=== PATIENT | male | born 1975 | race Caucasian/White ===

== ENCOUNTER → 2017-08-18 | Outpatient (CLI) | payer MEDICARE ==
[2017-08-18 10:52] LABS: Basophils # (A) 0.1 k/uL (0-0.2); Basophils % (A) 1 %; CH 31.5; CHCM 34.2; Eosinophils # (A) 0.2 k/uL (0-0.7); Eosinophils % (A) 2 %; HCT 50.1 % (39.0-53.0); HGB 16.5 gm/dL (13.0-17.5); Luc # (Auto) 0.21; Luc % (Auto) 2; Lymphocytes # (A) 2.3 k/uL (1.0-4.8); Lymphocytes % (A) 23 %; MCH 30.5 pg (25.0-35.0); MCV 92.5 fL (80.0-100.0); Mean Platelet Volume 6.8; Monocytes # (A) 0.6 k/uL (0-1.0); Monocytes % (A) 6 %; Neutrophils # (A) 6.7 k/uL (1.3-7.7); Neutrophils % (A) 66 %; RBC 5.42 m/uL (4.30-5.90); RDW 12.2 % (11.5-15.5); WBC 10.2 k/uL (3.8-10.6); WBC (Perox) 9.89
[2017-08-18 11:07] LABS: Potassium 4.6 mmol/L (3.5-5.1)
== END | disposition home or self-care (01) ==
LOC: LABPAT 10:03
PROVIDERS: ATTEND Orthopaedic Surgery
DX: Z01.818 Encounter for other preprocedural examination (principal); M75.41 Impingement syndrome of right shoulder; Z01.812 Encounter for preprocedural laboratory examination
CPT/HCPCS: 36415; 80051; 85025; 93005

== ENCOUNTER → 2017-08-25 | Day surgery (SDC) | payer MEDICARE, OTHER ==
[2017-08-23 09:33] VITALS: BMI 33.2
--- NOTE | 2017-08-24 18:57 | HP ---
HISTORY AND PHYSICAL CHIEF COMPLAINT: Right shoulder pain. HISTORY OF PRESENT ILLNESS: The patient is a 42-year-old right-hand dominant male, on disability, who presents with progressive right shoulder pain, worsening over the past year. He has had increasing symptoms recently. He is having pain with overhead activity and at night. He has tried previous medications, rest, and exercises with persistence/worsening of his symptoms. PAST MEDICAL HISTORY: Negative. PAST SURGICAL HISTORY: Significant for bilateral knee surgery, left shoulder surgery, neck surgery, and lower back surgery. CURRENT ALLERGIES: None. ALLERGIES: He notes allergies to CODEINE. FAMILY HISTORY: Negative. SOCIAL HISTORY: Negative for current tobacco or alcohol use. REVIEW OF SYSTEMS: Sixteen point review of systems otherwise reviewed and is noncontributory. PHYSICAL EXAMINATION: On examination, the patient is approximately 6 foot tall, 245 pounds of endomorphic habitus. HEENT exam is nonfocal. Neck is supple. On examination of the right shoulder, he is tender about the anterior subacromial space. He has mild subacromial crepitus. Active range of motion forward elevation 165 degrees, external rotation with the arm side 75 degrees, internal rotation to L5. Motor strength is 5-/5 for external rotation with the arm at side, 5/5 for abduction. Impingement, Neer and Speed tests are positive. His distal neurovascular appears intact in the right upper extremity. MRI report from 08/08/2017 of the right shoulder shows increased signal along the infraspinatus insertion with a questionable partial thickness bursal surface tear. IMPRESSION: 1. Right shoulder impingement with possible partial-thickness rotator cuff tear. 2. Bicipital tendinitis. RECOMMENDATIONS: I talked to the patient at length regarding his treatment options. At this point, he notes he is quite symptomatic and has tried conservative measures in the past with recurrence of his symptoms. After thorough discussion, he opts to proceed with surgery. We will plan to proceed with arthroscopic evaluation with possible subacromial decompression, possible rotator cuff debridement versus repair. We will also assess the status with biceps tendon at the same time. We will likely perform that as an outpatient procedure. MMODL / IJN: [id number] /
[~2017-08-25] MED LIST: DEXAMETHASONE SOD PHOSPHATE 10 MG/ML 1 ML VIAL IV ONE; HYDROmorphone (PF) 1 MG/ML ONE; HYDROmorphone 0.5 MG/0.5 ML SYRINGE IVP PRN; LACTATED RINGERS 1,000 ML IV ONE; LACTATED RINGERS 1,000 ML IV SCH; LIDOCAINE 1% 20 ML VIAL (10MG/ML) FOR IV START INTRADERMA PRN; LIDOCAINE 1% INJ 10MG/ML (20 ML MDV) ONE; MIDAZOLAM 2 MG/2 ML VIAL IV PRN; MIDAZOLAM 2 MG/2 ML VIAL ONE; MORPHINE SULFATE 10 MG/ML SYRINGE ONE; ONDANSETRON 4 MG/2 ML VIAL IVP ONE; PHENYLEPHRINE-0.9% NACL SYG 1 MG/10 ML SYRINGE ONE; PROPOFOL 10 MG/ML 20 ML VIAL IV ONE; SCOPOLAMINE 1.5MG/72HR PATCH TRANSDERM ONE; SUCCINYLCHOLINE CHLORIDE 100 MG/5 ML SYR IV ONE; ceFAZolin IN SWFI 2 GM/20 ML SYRINGE IVP ONE; fentaNYL (PF) 50 MCG/ML 2 ML AMP ONE
[2017-08-25 11:11] VITALS: BP 173/77; PULSE 86; RESP 16; TEMP 98
--- NOTE | 2017-08-25 22:55 | OP ---
OPERATIVE REPORT DATE OF SERVICE: 08/25/2017. PREOPERATIVE DIAGNOSIS: Right shoulder impingement/bicipital tendinitis/acromioclavicular joint arthritis. POSTOPERATIVE DIAGNOSES: 1. Partial-thickness tear, right rotator cuff. 2. High-grade partial-thickness tear, long head of the biceps, right shoulder. 3. Acromioclavicular synovitis/arthritis. PROCEDURE: 1. Right shoulder arthroscopic subacromial decompression. 2. Right shoulder arthroscopic biceps tenotomy. 3. Right shoulder arthroscopic distal clavicular resection. 4. Right shoulder arthroscopic rotator cuff debridement. SURGEON: Dr. Reyes Aguilar. CARE NAVIGATOR: Boy Bennett. ANESTHESIA: General. PREP: DuraPrep. INDICATIONS FOR PROCEDURE: The patient is a 42-year-old gentleman who presents with progressive right shoulder pain despite conservative measures. He was quite limited because of pain. A discussion of the risks and benefits of operative intervention versus continued conservative measures was made with the patient. He opted to proceed with surgery. Operative risks to include infection, neurovascular injury, development of blood clot, possible incomplete resolution of symptoms, possible worsening of symptoms and need for subsequent procedures were discussed. Informed consent was obtained. PROCEDURE DESCRIPTION: The patient was brought to the operating room, and after induction of general anesthesia, he was placed into a beach chair position. The bony prominences were appropriately padded. I examined the right shoulder. There was no gross block to passive motion. There was no gross glenohumeral instability. The right upper extremity was prepped and draped in a normal fashion. The bony outline of the acromion, distal clavicle and coracoid process was outlined with a skin marker. The glenohumeral joint was inflated with 50 mL of saline utilizing a spinal needle from a posterior approach. A posterior portal was made through a 5 mm skin incision 1 cm medial and inferior to the posterolateral border of the acromion. A blunt trocar was used to easily enter the joint. Diagnostic arthroscopy was performed. An anterior portal was made, entering the joint above the subscapularis tendon lateral to the coracoid process. On inspection of the joint, the anterior labrum was intact. Minimal degenerative changes involving the humeral head and glenoid were noted. On inspection of the intra-articular portion of the biceps, there was a high-grade partial-thickness tear. It was elected to proceed with tenotomy at this point. This was released from the superior labrum with electrocautery and allowed to retract to the bicipital groove. On inspection of the rotator cuff, a partial-thickness tear involving the supraspinatus and infraspinatus tendons was noted. This was debrided back to a stable base with a motorized shaver. Less than 3 mm of the tendon thickness was involved. The posterior portion of the rotator cuff was intact. The subscapularis was intact. The posterior labrum was intact. The inferior recess was inspected. The arthroscope was then placed into the subacromial space. A lateral portal was made through a 5 mm skin incision, 2.5 cm inferior to the anterolateral border of the acromion. The soft tissue on the undersurface of the acromion was debrided with a motorized shaver and with electrocautery to clearly define the anterior medial and lateral borders as well as the distal clavicle. An anterior inferior acromioplasty was performed with a motorized bur starting anterior lateral, then extending this posteriorly, then extending this medially. I was able to convert to a flat acromion. This was verified from the posterior and lateral viewing portals. The coracoacromial ligament was detached from the anterior acromion with electrocautery. Significant synovitis/arthritis of the AC joint was noted with impingement on the cuff as well. It was elected to proceed with distal clavicular resection. A motorized bur was used to remove the distal 4 to 5 mm of the clavicle. The rotator cuff was inspected on the bursal surface. There was significant bursal thickening that was debrided with a motorized shaver. The rotator cuff appeared intact on the bursal surface. The arthroscope was then removed. The portals were closed with simple 3-0 nylon suture. A sterile dressing was applied in addition to a sling. The patient was awoken from general anesthesia and transferred to the recovery room in good condition. Blood loss is estimated at 10 mL. No complications were incurred. Sponge and needle counts were correct at the end of the case. There was no specimen. MMODL / IJN: [id number] /
--- NOTE | 2017-08-26 08:01 | P.ONQ ---
Anesthesiology Proc Note - PNB - Peripheral Nerve Block Performed Right Interscalene Indication: Acute Post-Operative Pain, Requested by physician (Dr Aguilar) Sedation Type: Sedate with meaningful contact maintained Preparation: Sterile Prep Position: Supine Catheter: None Needle Types: Other (see comment) (Raymon) Needle Size: 50mm (2") Needle Gauge: 20 Technique: Ultrasound Injectate: 0.5% Ropivacaine (see comment for volume) (15cc, Lidocaine 1% 15cc, 1 :100,000 epi) Blood Aspirated: No Pain Paresthesia on Injection Noted: No Resistance on Injection: Normal Events: Uneventful and Well Tolerated
== END ==
LOC: OR 08:39
PROVIDERS: ATTEND Orthopaedic Surgery
DX: M75.111 Incomplete rotator cuff tear or rupture of right shoulder, not specified as traumatic (principal); S46.111A Strain of muscle, fascia and tendon of long head of biceps, right arm, initial encounter; X58.XXXA Exposure to other specified factors, initial encounter; M65.811 Other synovitis and tenosynovitis, right shoulder; M19.211 Secondary osteoarthritis, right shoulder; F17.200 Nicotine dependence, unspecified, uncomplicated; Z88.5 Allergy status to narcotic agent
CPT/HCPCS: 29823; 29824; 64415; J2250; J1100; J2270; J0690; J2405; J2001; J3010; J1170; J2370; J0330; J2704

== ENCOUNTER → 2018-08-20 | Outpatient (CLI) | payer MEDICARE, OTHER ==
--- NOTE | 2018-08-20 12:11 | XR ---
EXAMINATION TYPE: XR orbit detect foreign body DATE OF EXAM: 08/20/2018 COMPARISON: NONE HISTORY: Pre-MRI clearance. Works with metal. TECHNIQUE: 3 views of the orbits including Perez and Analisa frontal view and lateral projection. FINDINGS: No metallic intraorbital foreign body is seen to prevent MRI study. Overlying soft tissue i s unremarkable. IMPRESSION: As above.
--- NOTE | 2018-08-20 14:09 | MR ---
EXAMINATION TYPE: MR knee RT wo con DATE OF EXAM: 08/20/2018 COMPARISON: Outside right knee x-ray from one week ago. HISTORY: Pain in right knee per order. Inner knee pain and swelling for years per patient. TECHNIQUE: Multiplanar, multisequence images of the knee is performed without IV contrast. FINDINGS: MEDIAL MENISCUS: Anterior horn is intact without tear. There is horizontal oblique increased signal p osterior horn of medial meniscus which is truncated extending to inferior and likely superior articul ar surfaces. Slight medial protrusion of medial meniscus as seen on coronal images. Extension towards the central body is noted on sagittal images. LATERAL MENISCUS: Anterior and posterior horns are intact without tear. CRUCIATE LIGAMENTS: The anterior and posterior cruciate ligaments are intact and unremarkable. COLLATERAL LIGAMENTS: The medial collateral ligament and lateral collateral ligament complex are inta ct and unremarkable. EXTENSOR MECHANISM: Visualized quadriceps and patellar tendons are intact. EFFUSION: No significant suprapatellar joint effusion. POPLITEAL CYST: No popliteal/noriega cyst. TRICOMPARTMENT SPACES: Mild to moderate narrowing medial tibiofemoral compartment is present. No sign ificant spurring is seen. CARTILAGE: Cartilaginous loss medial tibiofemoral compartment is noted. BONE MARROW SIGNAL: No focal abnormal marrow signal is appreciated. OTHER: No additional significant abnormality is appreciated. IMPRESSION: Asymmetric mild to moderate medial tibiofemoral compartment osteoarthritis somewhat prono unced for patient's age with full-thickness tear posterior horn of medial meniscus appreciated.
== END | disposition home or self-care (01) ==
LOC: RADMRIMAIN 11:45
PROVIDERS: ATTEND Orthopaedic Surgery
DX: M17.11 Unilateral primary osteoarthritis, right knee (principal); S83.241A Other tear of medial meniscus, current injury, right knee, initial encounter; Z01.818 Encounter for other preprocedural examination
CPT/HCPCS: 70030

== ENCOUNTER → 2018-09-10 | Outpatient (CLI) | payer MEDICARE ==
[2018-09-10 09:36] LABS: Basophils # (A) 0.1 k/uL (0-0.2); Basophils % (A) 1 %; Eosinophils # (A) 0.2 k/uL (0-0.7); Eosinophils % (A) 3 %; HCT 51.1 % (39.0-53.0); HGB 16.3 gm/dL (13.0-17.5); Lymphocytes % (A) 24 %; MCV 93.8 fL (80.0-100.0); Mean Platelet Volume 6.3; Monocytes # (A) 0.6 k/uL (0-1.0); Monocytes % (A) 7 %; Neutrophils # (A) 5.2 k/uL (1.3-7.7); Neutrophils % (A) 63 %; Platelet Count 283 k/uL (150-450); RBC 5.44 m/uL (4.30-5.90); WBC 8.3 k/uL (3.8-10.6)
[2018-09-10 10:05] LABS: Potassium 4.6 mmol/L (3.5-5.1)
== END | disposition home or self-care (01) ==
LOC: LABPAT 08:45
PROVIDERS: ATTEND Orthopaedic Surgery
DX: Z01.812 Encounter for preprocedural laboratory examination (principal); M23.91 Unspecified internal derangement of right knee
CPT/HCPCS: 36415; 80051; 85025

== ENCOUNTER 2018-09-14 09:55 | Day surgery (SDC) | payer MEDICARE, OTHER ==
[2018-09-12 11:08] VITALS: BMI 34.8
--- NOTE | 2018-09-13 13:01 | HP ---
HISTORY AND PHYSICAL CHIEF COMPLAINT: Right knee pain. HISTORY OF PRESENT ILLNESS: The patient is a 43-year-old male on disability who presents with progressive right knee pain for the past several months. He is having a difficult time going up stairs and ladders. He notes medial pain and giving way. He had a previous arthroscopy in 2008. He has tried an injection and medications with only partial temporary relief. PAST MEDICAL HISTORY: Significant for arthritis. PAST SURGICAL HISTORY: Significant for bilateral knee arthroscopy, left shoulder surgery, previous cervical and lumbar surgeries. CURRENT ALLERGIES: Valium. He has allergies to CODEINE. FAMILY HISTORY: Negative. SOCIAL HISTORY: Significant for current tobacco use. REVIEW OF SYSTEMS: A 16 point review of systems otherwise reviewed and is noncontributory. PHYSICAL EXAMINATION: On examination, the patient is approximately 6 feet tall, 250 pounds of endomorphic habitus. HEENT exam is nonfocal. Neck is supple. He has painless passive motion of the right hip. Straight leg raise is negative, active motion right knee -6 to 124 degrees of flexion. He is tender about the medial joint line. Collaterals are stable, Sukumar is negative, Jenn's elicits medial pain. His distal neurovascular exam appears intact in the right lower extremity. MRI report from 08/20/2018 shows a posterior medial meniscal tear along with medial compartment degenerative changes. IMPRESSION: 1. Internal derangement, right knee with symptomatic medial meniscal tear #1. 2. Right knee moderate medial compartment osteoarthrosis. 3. Obesity. RECOMMENDATIONS: I talked to the patient at length regarding his condition and treatment options. At this point, he remains quite symptomatic despite conservative measures. He opts to proceed with surgery. We will plan to proceed with arthroscopic evaluation with possible partial medial meniscectomy. Risks and benefits were discussed at length in layman's terms. MMODL / IJN: [id number] /
[~2018-09-14 09:55] MED LIST changes: -HYDROmorphone (PF) 1 MG/ML ONE; -HYDROmorphone 0.5 MG/0.5 ML SYRINGE IVP PRN; -LACTATED RINGERS 1,000 ML IV ONE; -LIDOCAINE 1% 20 ML VIAL (10MG/ML) FOR IV START INTRADERMA PRN; -LIDOCAINE 1% INJ 10MG/ML (20 ML MDV) ONE; +MIDAZOLAM (PF) 2 MG/2 ML VIAL IV PRN; -MIDAZOLAM 2 MG/2 ML VIAL IV PRN; -MIDAZOLAM 2 MG/2 ML VIAL ONE; -MORPHINE SULFATE 10 MG/ML SYRINGE ONE; -ONDANSETRON 4 MG/2 ML VIAL IVP ONE; -PHENYLEPHRINE-0.9% NACL SYG 1 MG/10 ML SYRINGE ONE; -PROPOFOL 10 MG/ML 20 ML VIAL IV ONE; -SCOPOLAMINE 1.5MG/72HR PATCH TRANSDERM ONE; -SUCCINYLCHOLINE CHLORIDE 100 MG/5 ML SYR IV ONE; +fentaNYL (PF) 50 MCG/ML 2 ML AMP IV PRN; -fentaNYL (PF) 50 MCG/ML 2 ML AMP ONE
[2018-09-14] MEDS ORDERED: LIDOCAINE 1% 20 ML VIAL (10MG/ML) FOR IV START INTRADERMA ONE (10:25)
[2018-09-14] MEDS ORDERED: ONDANSETRON 4 MG/2 ML VIAL IVP ONE (10:30)
[2018-09-14] MEDS ORDERED: DEXAMETHASONE SOD PHOSPHATE 10 MG/ML 1 ML VIAL IV ONE (10:30)
[2018-09-14] MEDS ORDERED: fentaNYL (PF) 50 MCG/ML 2 ML AMP ONE (11:29)
[2018-09-14] MEDS ORDERED: SUCCINYLCHOLINE CHLORIDE VIAL 200 MG/10 ML VIAL IV ONE (11:29)
[2018-09-14] MEDS ORDERED: PROPOFOL 10 MG/ML 20 ML VIAL IV ONE (11:29)
[2018-09-14] MEDS ORDERED: MIDAZOLAM 2 MG/2 ML VIAL ONE (11:29)
[2018-09-14] MEDS ORDERED: LIDOCAINE 1% INJ 10MG/ML (20 ML MDV) ONE (11:29)
[2018-09-14] MEDS ORDERED: PHENYLEPHRINE-0.9% NACL SYG 1 MG/10 ML SYRINGE ONE (11:29)
[2018-09-14] MEDS ORDERED: ceFAZolin 1,000 MG/50 ML BAG (PMX) IVPB ONE (11:45)
[2018-09-14] MEDS ORDERED: LACTATED RINGERS 1,000 ML IV ONE (12:07)
--- NOTE | 2018-09-14 12:16 | P.OP ---
Date of Procedure: 09/14/18 Preoperative Diagnosis: Right knee internal derangement Postoperative Diagnosis: Right knee posterior medial meniscal tear/grade 23 chondral injury distal medial femoral condyle Procedure(s) Performed: Right knee arthroscopic partial medial meniscectomy/medial femoral chondrectomy Anesthesia: DARYL Surgeon: Reyes Aguilar Estimated Blood Loss (ml): 10 Pathology: none sent Condition: stable Disposition: PACU Indications for Procedure: The patient is a 43-year-old male who presents with progressive right knee pain and mechanical symptoms despite conservative measures. A discussion of the risks and benefits of operative intervention versus continued conservative measures was made with the patient. He opted to proceed with surgery. Operative risks to include infection, neurovascular injury, development of blood clots, possible incomplete resolution of symptoms, possible worsening of symptoms and need for subsequent procedures was discussed. Informed consent was obtained. Operative Findings: As below Description of Procedure: The patient was brought to the operating room, and after induction of general anesthesia examined the [] knee. Collaterals were stable, Sukumar was negative , and posterior drawer was negative. The right lower extremity was prepped and draped in a normal fashion. A superior lateral portal was made through a 3 mm skin incision superior and lateral to the patella. This was used for outflow. A lateral portal was made through a 5 mm vertical skin incision lateral to the patella tendon above the joint line. Diagnostic arthroscopy was performed. On inspection of the medial compartment a complex tear involving the posterior horn of the medial meniscus was noted in the white-red junction. This was debrided back to stable base with straight baskets and a motorized shaver. A corresponding grade 23 chondral injury was noted involving the distal medial femoral condyle was a loose chondral fragment. This was debrided back to stable base with a motorized shaver. Diffuse grade chondral changes were noted in the medial compartment. On inspection of the notch, the anterior cruciate ligament appeared to be intact. On inspection of the lateral compartment no significant cartilage or meniscal pathology was noted.. On inspection of the patellofemoral articulation there was mild degenerative changes however no loose chondral fragments.. The gutters were clear debris. The knee was then thoroughly irrigated. The portals were closed with Steri-Strips. A sterile dressing was applied in addition to a compression stocking. The patient was awoken from general anesthesia and transferred to recovery room in good condition. Blood loss was estimated at 10 mL. No complications were incurred.
[2018-09-14 12:35] VITALS: TEMP 96.8
[2018-09-14] MEDS ORDERED: MORPHINE SULFATE 10 MG/ML SYRINGE IVP ONE ×5 (13:11→13:42)
[2018-09-14] MEDS ORDERED: HYDROcodone/APAP 5-325MG 1 EACH TAB PO ONE (14:00)
[2018-09-14 14:41] VITALS: BP 100/64; PULSE 76; RESP 16
== END 2018-09-14 14:55 | disposition home or self-care (01) ==
LOC: OR 09:55
PROVIDERS: ATTEND Orthopaedic Surgery
DX: S83.231A Complex tear of medial meniscus, current injury, right knee, initial encounter (principal); X58.XXXA Exposure to other specified factors, initial encounter; M17.11 Unilateral primary osteoarthritis, right knee; E66.9 Obesity, unspecified; Z68.34 Body mass index [BMI] 34.0-34.9, adult; M54.16 Radiculopathy, lumbar region; F17.200 Nicotine dependence, unspecified, uncomplicated; Z92.84 Personal history of unintended awareness under general anesthesia; Z88.5 Allergy status to narcotic agent
CPT/HCPCS: 29881; J2250; J0330; J1100; J2270; J2405; J2001; J3010; J0690; J2370; J2704

== ENCOUNTER → 2019-04-24 | Outpatient (CLI) | payer MEDICARE ==
--- NOTE | 2019-04-24 11:19 | US ---
EXAMINATION TYPE: US abdomen complete DATE OF EXAM: 04/24/2019 COMPARISON: US CLINICAL HISTORY: K46.9 Unspecified abdominal hernia without obstruc. Pt states ABD pain, GB removed EXAM MEASUREMENTS: Liver Length: 18.0 cm CBD: 0.4 cm Spleen: 10.6 cm Right Kidney: 11.6 x 4.8 x 5.2 cm Left Kidney: 10.9 x 6.5 x 5.8 cm Pancreas: wnl, tail obscured by overlying bowel gas Liver: Enlarged, heterogeneous Gallbladder: Surgically absent Evidence for sonographic Dos Santos's sign: No CBD: wnl Spleen: wnl Right Kidney: wnl Left Kidney: Cyst mid/lateral= 1.4 x 1.4 x 1.5 cm Upper IVC: wnl Abd Aorta: wnl Please note midline/right superficial ABD scanned in area pt stated Dr felt palpable, No abnormalit y visualized in this area IMPRESSION: 1. Visualized abdomen ultrasound is unremarkable. 2. Left renal cyst 3. In the superficial abdomen at the area of the palpable region, no suspicious ultrasound findings a re evident.
== END | disposition home or self-care (01) ==
LOC: RADUSWWP 07:38
PROVIDERS: ATTEND Internal Medicine Geriatric Medicine
DX: N28.1 Cyst of kidney, acquired (principal)
CPT/HCPCS: 76700

== ENCOUNTER → 2020-06-10 | Outpatient (CLI) | payer MEDICARE ==
[2020-06-10 11:49] LABS: HCT 50.5 % (39.0-53.0); HGB 16.9 gm/dL (13.0-17.5); MCH 31.4 pg (25.0-35.0); MCHC 33.5 g/dL (31.0-37.0); MCV 93.8 fL (80.0-100.0); Mean Platelet Volume 6.8; Platelet Count 232 k/uL (150-450); RBC 5.39 m/uL (4.30-5.90); RDW 12.4 % (11.5-15.5); WBC 9.8 k/uL (3.8-10.6)
[2020-06-10 22:43] LABS: African American GFR (CKD) 75.8 (60.0-200.0); Anion Gap 9.9 mmol/L (4.00-12.00); Carbon Dioxide 23.1 mmol/L (21.6-31.8); Non-African American GFR(CKD) 65.4 (60.0-200.0); Potassium 4.5 mmol/L (3.5-5.5)
== END | disposition home or self-care (01) ==
LOC: LABWHC1 09:33
PROVIDERS: ATTEND Internal Medicine Interventional Cardiology
DX: Z01.818 Encounter for other preprocedural examination (principal); R07.9 Chest pain, unspecified
CPT/HCPCS: 36415; 80051; 82565; 84520; 85027

== ENCOUNTER 2020-06-12 07:29 | Day surgery (SDC) | payer MEDICARE ==
[2020-06-10 12:49] VITALS: BMI 36.6
[~2020-06-12 07:29] MED LIST changes: +ALPRAZolam 0.25 MG TAB PO PRN; +ASPIRIN 325 MG TAB PO STA; +ATORVASTATIN 80 MG TAB PO STA; -DEXAMETHASONE SOD PHOSPHATE 10 MG/ML 1 ML VIAL IV ONE; -LACTATED RINGERS 1,000 ML IV SCH; -MIDAZOLAM (PF) 2 MG/2 ML VIAL IV PRN; +NITROGLYCERIN SL TABS 0.4 MG TAB SUBLINGUAL PRN; +SODIUM CHLORIDE 0.9% 1,000 ML in EMPTY BAG 1 BAG IV ONE; -ceFAZolin IN SWFI 2 GM/20 ML SYRINGE IVP ONE; -fentaNYL (PF) 50 MCG/ML 2 ML AMP IV PRN
[2020-06-12] MEDS ORDERED: SODIUM CHLORIDE 0.9% 1,000 ML IV ONE (07:45)
[2020-06-12] MEDS: ALPRAZolam 0.5 MG TAB PO PRN ×2 (07:50→07:55)
[2020-06-12] MEDS ORDERED: VERAPAMIL 2.5 MG/ML 2 ML AMP ONE (08:19)
[2020-06-12] MEDS ORDERED: HEPARIN SODIUM 1,000 UN/ML (10ML VL) ONE (08:19)
[2020-06-12] MEDS ORDERED: LIDOCAINE 1% INJ 10MG/ML (20 ML MDV) ONE (08:19)
[2020-06-12] MEDS ORDERED: MIDAZOLAM 2 MG/2 ML VIAL IVP ONE (08:36)
[2020-06-12] MEDS ORDERED: LIDOCAINE 1% INJ 10MG/ML (20 ML MDV) SQ ONE (08:39)
[2020-06-12] MEDS: VERAPAMIL SYRINGE (5 MG/10 ML) INTRAARTER ONE ×2 (08:41→08:54)
[2020-06-12] MEDS ORDERED: HYDROmorphone 1 MG/ML 1 ML SYRINGE ONE (08:42)
[2020-06-12] MEDS ORDERED: HYDROmorphone 1 MG/ML 1 ML SYRINGE IVP ONE (08:44)
[2020-06-12] MEDS ORDERED: HEPARIN SODIUM 1,000 UN/ML (10ML VL) IV ONE (08:45)
[2020-06-12] MEDS ORDERED: IOPAMIDOL-370 125ML BTL INJ ONE (08:55)
[2020-06-12] MEDS ORDERED: RX INFO: IV CONTRAST WAS GIVEN 1 EACH MISC MISCELLANE PRN (09:01)
[2020-06-12] MEDS ORDERED: SODIUM CHLORIDE 0.9% 1,000 ML IV SCH (09:15)
[2020-06-12] MEDS ORDERED: methylPREDNISolone SOD SUCCI 125 MG/2 ML VIAL IV STA (09:16)
[2020-06-12] MEDS ORDERED: diphenhydrAMINE 50 MG CAP PO STA (09:16)
[2020-06-12] MEDS: methylPREDNISolone SOD SUCCI 125 MG/2 ML VIAL ONE ×2 (09:18→09:37)
--- NOTE | 2020-06-12 09:36 | CC ---
CARDIAC CATHETERIZATION REPORT DATE OF SERVICE: 06/12/2020 PERFORMING PHYSICIAN: Miguel Musa MD. PROCEDURE PERFORMED: 1. Selective right and left coronary angiogram. 2. Left heart catheterization. INDICATION: This is a 45-year-old gentleman with history of smoking as well as hypertension and obesity, who was experiencing symptoms of atypical chest discomfort as well as shortness of breath with exertion. He underwent myocardial perfusion imaging stress test and that revealed distal anterior wall ischemia. Because of that, a heart catheterization was advised. APPROACH: Right radial artery. COMPLICATION: None. LEVEL OF SEDATION: Moderate with sedation length of 21 minutes. PROCEDURE DESCRIPTION: After obtaining an informed consent, the patient was brought to the cardiac school laboratory technician. The right radial artery was cannulated using micropuncture technique, the micropuncture wire passed easily, then I placed a 6-Korean sheath. I did give the patient 2 mg of verapamil IA and 10,000 units of heparin IV. Selective right and left coronary angiogram performed with JR4 and JL3.5 catheters. Left heart catheterization was performed using the JR4 catheter which crossed the aortic valve, then I did pullback across the valve. The procedure was completed without any complication. SELECTIVE CORONARY ANGIOGRAM: 1. The right coronary artery is a large caliber vessel and it is a dominant vessel. The proximal RCA appeared to be angiographically normal. The mid RCA has eccentric lesion was seen best on the PRESCOTT view as well as the AP cranial view. The lesion appeared to be eccentric and appeared to be in the range of 60%. The RCA distally appeared to be angiographically normal. 2. The left main is angiographically normal, it bifurcates into LCX and LAD. 3. The LCX is a large caliber vessel, it is a codominant vessel. The left circumflex is angiographically normal. Proximally, it gives rise into a large first OM branch which worked as ramus intermedius and appeared to be angiographically normal and in the mid gives rise into a second OM branch which has mild disease only and then distally bifurcates into PDA and PLV branches. 4. The LAD is angiographically normal. It does reach the apex. The LAD gives rise into multiple diagonal branches, they appeared to be angiographically normal. 5. HEMODYNAMICS: The LVEDP was 10 mmHg without significant gradient across the aortic valve. CONCLUSION: 1. 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 2. Mild disease involving the left coronary system. 3. Normal left ventricular end-diastolic pressure. POSTPROCEDURE MANAGEMENT: 1. Consider a conservative medical approach including anti-platelet as well as high- intensity statin, as well as beta yojana. 2. If the patient continues to be symptomatic on maximized medical treatment, I would consider doing a FFR/PCI of the RCA lesion. MMADALBERTO / SARAHN: [id number] /
--- NOTE | 2020-06-12 09:52 | LTR ---
DATE OF SERVICE: 06/12/2020 RE: Nikos Roman Dear Dr. Fuller; Mr. Nikos Roman underwent today a heart catheterization. As you know, he is a pleasant 45-year-old gentleman who was experiencing symptoms of chest discomfort and underwent myocardial perfusion imaging stress test and that revealed anterior ischemia. Because of that, a heart catheterization was advised. The heart catheterization revealed intermediate to severe lesion involving the mid right coronary artery, seems to be in the range of 50% to 60%. At this point, I did advise maximized medical treatment including anti-platelet as well as high-intensity statin as well as beta yojana. If he continues to be symptomatic in spite of that, I would consider doing an FFR/PCI of the RCA lesion. Thank you again for allowing me to participate in his care. Sincerely, MD ROSE Ponce / BRAD: [id number] /
[2020-06-12 15:37] VITALS: RESP 16
[2020-06-12 15:59] VITALS: BP 146/76; PULSE 74
== END 2020-06-12 13:40 | disposition home or self-care (01) ==
LOC: CATHCVL 07:29
PROVIDERS: ATTEND Internal Medicine Interventional Cardiology
DX: I25.110 Atherosclerotic heart disease of native coronary artery with unstable angina pectoris (principal); R07.89 Other chest pain; R06.02 Shortness of breath; R94.39 Abnormal result of other cardiovascular function study; I10 Essential (primary) hypertension; E66.9 Obesity, unspecified; L23.7 Allergic contact dermatitis due to plants, except food; Z88.5 Allergy status to narcotic agent; Z87.891 Personal history of nicotine dependence; Z68.37 Body mass index [BMI] 37.0-37.9, adult
CPT/HCPCS: 93458; C1769; C1894; J2250; J2930; J2001; J1644; J1170; Q9967

== ENCOUNTER 2024-09-18 12:42 | Emergency (ER) | payer BC, MEDICARE ==
[2024-09-18 12:47] VITALS: TEMP 97.9
--- NOTE | 2024-09-18 13:29 | ED ---
Back Pain HPI - General Chief Complaint: Back Pain/Injury Stated Complaint: back pain Time Seen by Provider: 09/18/24 12:57 Source: patient, RN notes reviewed Limitations: no limitations - History of Present Illness Initial Comments: This is a 49-year-old male with history of chronic back pain and disc herniation presenting with back pain (04/13) x 5 days. Patient states pain occurred suddenly while walking, described as sharp with burning sensation traveling down his right leg to his foot. Denies recent trauma, heavy lifting, new cause of pain. Denies saddle paresthesia, urinary incontinence/retention. Endorses use of p.o. muscle relaxer with minimal relief. MD Complaint: back pain Onset/Timin -: days(s) Similar Symptoms Previously: Yes Place: home Radiation: right leg Severity scale (1-10): 8 Quality: burning Consistency: constant Improves With: immobilization Worsens With: movement, sitting upright, walking Associated Symptoms: denies other symptoms - Related Data Previous Rx's Medication Instructions Recorded Cyclobenzaprine [Flexeril] 10 mg PO Q8H PRN #15 tab 09/18/24 Ibuprofen [Motrin] 800 mg PO Q8H PRN #30 tab 09/18/24 Allergies Allergy/AdvReac Type Severity Reaction Status Date / Time codeine Allergy Rash/Hives, Verified 09/18/24 12:48 ITCHING hydromorphone [From Dilaudid] AdvReac Itching Verified 09/18/24 12:48 Review of Systems ROS Statement: Those systems with pertinent positive or pertinent negative responses have been documented in the HPI. ROS Other: All systems not noted in ROS Statement are negative. Past Medical History Past Medical History: Osteoarthritis (OA) Additional Past Medical History / Comment(s): kidney stone hx. History of Any Multi-Drug Resistant Organisms: None Reported Past Surgical History: Back Surgery, Cholecystectomy, Orthopedic Surgery Additional Past Surgical History / Comment(s): lt thumb reattached. lt shoulder. mirian knee surg. x 5, neck titanium, 3 low back surg. x 3. Past Anesthesia/Blood Transfusion Reactions: Previous Problems w/ Anesthesia Additional Past Anesthesia/Blood Transfusion Reaction / Comment(s): wakes up in the middle of surgerys, occ. choke and gag. Past Psychological History: No Psychological Hx Reported Smoking Status: Never smoker Past Alcohol Use History: None Reported Past Drug Use History: None Reported - Past Family History Mother Family Medical History: No Reported History General Exam Limitations: no limitations General appearance: alert, in no apparent distress Head exam: Present: atraumatic, normocephalic, normal inspection Eye exam: Present: normal appearance, PERRL, EOMI. Absent: scleral icterus, conjunctival injection, periorbital swelling ENT exam: Present: normal exam, mucous membranes moist Neck exam: Present: normal inspection. Absent: tenderness, meningismus, lymphadenopathy Respiratory exam: Present: normal lung sounds bilaterally. Absent: respiratory distress, wheezes, rales, rhonchi, stridor Cardiovascular Exam: Present: regular rate, normal rhythm, normal heart sounds. Absent: systolic murmur, diastolic murmur, rubs, gallop, clicks GI/Abdominal exam: Present: soft, normal bowel sounds. Absent: distended, tenderness, guarding, rebound, rigid Extremities exam: Present: normal inspection, full ROM, normal capillary refill. Absent: tenderness, pedal edema, joint swelling, calf tenderness Back exam: Present: normal inspection, paraspinal tenderness (Positive right paraspinal muscle spasm/tenderness from mid thoracic spine to lumbar region) Neurological exam: Present: alert, oriented X3, CN II-XII intact Psychiatric exam: Present: normal affect, normal mood Skin exam: Present: warm, dry, intact, normal color. Absent: rash Course Vital Signs 09/18/24 12:45 Temperature 97.9 F Pulse Rate 76 Respiratory 18 Rate O2 Sat by Pulse 95 Oximetry Medical Decision Making - Medical Decision Making Was pt. sent in by a medical professional or institution (, PA, BICYCLE REPAIRMAN, urgent care, hospital, or residential...) When possible be specific @ -No Did you speak to anyone other than the patient for history (EMS, parent, family, police, friend...)? What history was obtained from this source @ -No Did you review nursing and triage notes (agree or disagree)? Why? @ -I reviewed and agree with nursing and triage notes Were old charts reviewed (outside hosp., previous admission, EMS record, old EKG, old radiological studies, urgent care reports/EKG's, residential records)? Report findings @ -No old charts were reviewed Differential Diagnosis (chest pain, altered mental status, abdominal pain women, abdominal pain men, vaginal bleeding, weakness, fever, dyspnea, syncope, headache, dizziness, GI bleed, back pain, seizure, CVA, palpatations, mental health, musculoskeletal)? @ -Differential Back Pain: Strain, zoster, cauda equina syndrome, epidural abscess, vertebral osteomyelitis, discitis, fracture, subluxation, disc herniation, DJD, spinal stenosis, dissection, AAA, pancreatitis, peptic ulcer disease, pyelonephritis, kidney stone, this is not meant to be an all-inclusive list. EKG interpreted by me (3pts min.). @ -Not done X-rays interpreted by me (1pt min.). @ -None done CT interpreted by me (1pt min.). @ -None done U/S interpreted by me (1pt. min.). @ -None done What testing was considered but not performed or refused? (CT, X-rays, U/S, labs)? Why? @ -None What meds were considered but not given or refused? Why? @ -None Did you discuss the management of the patient with other professionals (professionals i.e. , PA, BICYCLE REPAIRMAN, lab, RT, psych nurse, social sciences instructor, general production laborer, teacher, submarine advisory team watch officer, lining caser)? Give summary @ -No Was smoking cessation discussed for >3mins.? @ -No Was critical care preformed (if so, how long)? @ -No Were there social determinants of health that impacted care today? How? (Homelessness, low income, unemployed, alcoholism, drug addiction, transportation, low edu. Level, literacy, decrease access to med. care, snf, rehab)? @ -No Was there de-escalation of care discussed even if they declined (Discuss DNR or withdrawal of care, Hospice)? DNR status @ -No What co-morbidities impacted this encounter? (DM, HTN, Smoking, COPD, CAD, Cancer, CVA, ARF, Chemo, Hep., AIDS, mental health diagnosis, sleep apnea, morbid obesity)? @ -None Was patient admitted / discharged? Hospital course, mention meds given and route, prescriptions, significant lab abnormalities, going to OR and other pertinent info. @ -Patient provided IM Toradol, Norflex and Solu-Medrol, noting some relief in pain. Motrin 800 and Flexeril sent to patient's pharmacy. Advised heating pad for 10 minutes up to 4 times daily and gentle massage of area. Advised follow- up with orthospine for ongoing pain/symptoms. Discussed patient with Dr. Lee. Undiagnosed new problem with uncertain prognosis? @ -No Drug Therapy requiring intensive monitoring for toxicity (Heparin, Nitro, Insulin, Cardizem)? @ -No Were any procedures done? @ -No Diagnosis/symptom? @ -Paraspinal muscle spasm/strain with radiculopathy Acute, or Chronic, or Acute on Chronic? @ -Acute Uncomplicated (without systemic symptoms) or Complicated (systemic symptoms)? @ -Uncomplicated Side effects of treatment? @ -No Exacerbation, Progression, or Severe Exacerbation? @ -No Poses a threat to life or bodily function? How? (Chest pain, [place], [place], pneumonia, PE, COPD, DKA, ARF, appy, cholecystitis, CVA, Diverticulitis, Homicidal, Suicidal, threat to staff... and all critical care pts) @ -No Disposition Clinical Impression: Right lumbar radiculopathy, Strain of lumbar region Disposition: HOME SELF-CARE Condition: Good Instructions (If sedation given, give patient instructions): Acute Low Back Pain (ED) Prescriptions: Cyclobenzaprine [Flexeril] 10 mg PO Q8H PRN #15 tab PRN Reason: Spasms Ibuprofen [Motrin] 800 mg PO Q8H PRN #30 tab PRN Reason: Pain Is patient prescribed a controlled substance at d/c from ED?: No Referrals: Rell Fuller MD [Primary Care Provider] - 1-2 days Time of Disposition: 14:14
[2024-09-18] MEDS: KETOROLAC 15 MG/ML 1 ML VIAL IM STA (13:31)
[2024-09-18] MEDS: ORPHENADRINE 30 MG/ML 2 ML VIAL IM STA (13:32)
[2024-09-18] MEDS: methylPREDNISolone SOD SUCCI 125 MG/2 ML VIAL IM ONE (13:39)
[2024-09-18 14:41] VITALS: BP 141/90; PULSE 67; RESP 20
== END 2024-09-18 14:41 | disposition home or self-care (01) ==
LOC: EC 12:42
DX: S39.012A Strain of muscle, fascia and tendon of lower back, initial encounter (principal); M54.16 Radiculopathy, lumbar region; Z88.5 Allergy status to narcotic agent; Z88.8 Allergy status to other drugs, medicaments and biological substances; Y93.01 Activity, walking, marching and hiking
CPT/HCPCS: 99283; 96372; J2360; J1885; J2919